=== PATIENT | female | born 2000 | race Caucasian/White ===

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

== ENCOUNTER → 2025-04-07 | Outpatient (REF) | payer OTHER | LOC: M PLALAB 10:16 | PROVIDERS: ATTEND Advanced Practice Midwife | DX: Z53.9 Procedure and treatment not carried out, unspecified reason (principal) ==

== ENCOUNTER → 2025-04-07 | Outpatient (CLI) | payer OTHER ==
[2025-04-07 13:37] LABS: PLATELET COUNT, AUTOMATED 247 10^3/uL (150-450)
[2025-04-07 14:14] LABS: HIV 1&2 SCREEN NEGATIVE (NEGATIVE)
[2025-04-07 14:23] LABS: HEPATITIS C VIRUS ABY INDEX 0.02 INDEX (<0.8)
[2025-04-07 14:27] LABS: Trichomonas vaginalis (AMP) NOT DETECTED (NEGATIVE)
[2025-04-07 14:51] LABS: GC DNA AMPLIFICATION NEGATIVE (NEGATIVE)
== END ==
LOC: M PLALAB 10:23
PROVIDERS: ATTEND Advanced Practice Midwife
DX: Z34.80 Encounter for supervision of other normal pregnancy, unspecified trimester (principal)

== ENCOUNTER → 2025-05-05 | Outpatient (REF) | payer OTHER | LOC: M PLALAB 16:35 | PROVIDERS: ATTEND Student in an Organized Health Care Education/Training Program | DX: Z31.430 Encounter of female for testing for genetic disease carrier status for procreative management (principal); Z53.9 Procedure and treatment not carried out, unspecified reason ==

== ENCOUNTER → 2025-05-05 | Outpatient (CLI) | payer OTHER | LOC: M PLALAB 16:49 | PROVIDERS: ATTEND Student in an Organized Health Care Education/Training Program | DX: Z31.430 Encounter of female for testing for genetic disease carrier status for procreative management (principal) ==

== ENCOUNTER → 2025-06-05 | Outpatient (CLI) | payer OTHER | LOC: M WHC 09:07 | PROVIDERS: ATTEND Student in an Organized Health Care Education/Training Program | DX: Z34.81 Encounter for supervision of other normal pregnancy, first trimester (principal) ==